=== PATIENT | male | born 1970 | race Caucasian/White ===

== ENCOUNTER 2022-06-22 11:42 | Inpatient (IN) ==
[2022-06-22] MEDS ORDERED: ASPIRIN CHEW 324 MG PO STA ×2 (11:53→11:58)
[2022-06-22] MEDS ORDERED: NITROGLYCERIN SL 0.4 MG/TAB TAB SL STA (11:58)
[2022-06-22] MEDS ORDERED: SODIUM CHLORIDE 0.9% 1000ML 1,000 ML IV ONE (11:58)
[2022-06-22] MEDS ORDERED: NITROGLYCERIN SL 0.4 MG/TAB TAB ONE (11:58)
--- NOTE | 2022-06-22 12:14 | Emergency Department Note ---
History of Present Illness General Chief Complaint: Chest Pain Stated Complaint: CHEST PAIN Time Seen by Provider: 06/22/22 11:53 History of Present Illness Provider Complaint: chest pain Onset (ago): minute(s) 30 Duration: constant Onset: during rest Pain Location: substernal, left chest and right chest Pain Radiation: none Severity: moderate Maximum Pain Intensity: 8 Current Pain Intensity: 8 Quality: + aching and + heaviness Relieved By: + nothing Exacerbated By: + nothing Context: no recent illness, no recent surgery, no recent immobilization, no recent travel, no trauma/injury, no new medications or no history of DVT/PE Associated symptoms: no nausea, no vomiting, no dyspnea, no syncope, no palpitations, no fever or no cough Home Medications Medication Instructions Recorded Confirmed Type olmesartan 20 mg tablet (Benicar) 20 mg PO DAILY 12/31/21 06/22/22 History pantoprazole 40 mg tablet,delayed 40 mg PO DAILY 12/31/21 06/22/22 History release Allergies Allergy/AdvReac Type Severity Reaction Status Date / Time bee venom protein (honey bee) Allergy Severe Hives, Unverified 06/22/22 12:48 Heart racing, trouble breathing lisinopril AdvReac Mild Cough Unverified 06/22/22 12:45 Past Med/Surg History Medical History Esophageal reflux Hypertension No pertinent family history Surgical History No pertinent past surgical history Family History Other Hypertension Social History Smoking Status: Former smoker Hx Alcohol Use: Yes Hx Substance Use: No marital status: Current Living Situation: Spouse current occupational status: employed Feels Safe at Home: Yes Physical Exam Vital Signs Vital Signs - 24 hr 06/22/22 11:45 06/22/22 11:55 06/22/22 11:53 Temperature 36.2 C L Temperature Source Temporal Artery Scan Pulse Rate 62 63 Pulse Rate [Apical] 60 Respiratory Rate 20 16 Respiratory Effort / Characteristics Non-Labored Spontaneous Respiratory Depth Normal Respiratory Pattern Regular Blood Pressure 205/104 H Blood Pressure [Left Arm] 168/96 H Blood Pressure Mean 137 Blood Pressure Mean [Left Arm] 120 Pulse Oximetry 95 97 Oxygen Delivery Method Room Air Sepsis Recent Fever Within 48 Hours No Sepsis New/Unexplained Change in Mental Status No Sepsis Action Taken by Nursing No Action Required 06/22/22 11:53 Temperature Temperature Source Pulse Rate Pulse Rate [Apical] Respiratory Rate Respiratory Effort / Characteristics Respiratory Depth Respiratory Pattern Blood Pressure Blood Pressure [Left Arm] Blood Pressure Mean Blood Pressure Mean [Left Arm] Pulse Oximetry 96 Oxygen Delivery Method Sepsis Recent Fever Within 48 Hours Sepsis New/Unexplained Change in Mental Status Sepsis Action Taken by Nursing Physical Exam GENERAL: He is oriented to person, place, and time. He appears well-developed and well-nourished. He does not appear distressed. HENT: Exam performed. - Head: Normocephalic and atraumatic. - Right Ear: External ear normal. No mastoid tenderness. - Left Ear: External ear normal. No mastoid tenderness. - Mouth/Throat: The oropharynx is clear and moist. No trismus in the jaw. No dental abscesses or uvula swelling. No oropharyngeal exudate or tonsillar abscesses. EYES: Conjunctivae and EOM are normal. Pupils are equal, round, and reactive to light. Right eye exhibits no discharge. Left eye exhibits no discharge. No scleral icterus. NECK: Normal range of motion. Neck supple. No JVD present. No spinous process tenderness present. No carotid bruit present. No rigidity. No tracheal deviation and normal range of motion present. No Brudzinski's sign and no Kernig's sign noted. CV: Normal rate, regular rhythm, normal heart sounds and intact distal pulses. There is no peripheral edema. Palpable radial pulses bue. PULM/CHEST: Effort normal and breath sounds normal. No respiratory distress. No stridor. He has no wheezes. He has no rales. - Chest Wall: He exhibits no tenderness. ABD: The abdomen is soft. Bowel sounds are normal. He has no distension. No mass is present. There is no tenderness. There is no rebound, no guarding, no M urphy's sign and no tenderness at McBurney's point. Rovsig negative. MUSC/SKEL: Normal range of motion. There is no peripheral edema, tenderness or deformity. LYMPH: No cervical adenopathy. NEURO: He is alert and oriented to person, place, and time. He has normal strength. No cranial nerve deficit or sensory deficit. Coordination and gait normal. GCS eye subscore is 4. GCS verbal subscore is 5. GCS motor subscore is 6. Cerebellar tests wnl. SKIN: Skin is warm and dry. He is not diaphoretic. PSYCH: He has a normal mood and affect. Behavior is normal. Judgment and thought content normal. Course Course 1153: The patient was evaluated in room A11. A complete history and physical exam was performed Cardiac monitoring: An order was placed for continuous cardiac monitoring. The monitor shows a rate of 60 with sinus rhythm interpreted by me 1231: Vital signs stable. Patient reports near resolution of his chest pain currently 2 out of 10 status post nitroglycerin sublingually. 1350: Vital signs stable. Patient reports no chest pain at this time. Troponin is mildly elevated 24. D-dimer and chest x-ray are normal. [facility] pain rule out ACS. Administered Medications Discontinued Medications Aspirin (Aspirin Chew 324 Mg) 324 mg PO NOW STA Stop: 06/22/22 11:54 Last Admin: 06/22/22 12:00 Dose: 324 mg Documented By: CASEY Aspirin (Aspirin Chew 324 Mg) 324 mg PO NOW STA Stop: 06/22/22 11:59 Last Admin: 06/22/22 12:12 Dose: Not Given Documented By: CASEY Sodium Chloride (Nss 1000ml) 1,000 mls @ 999 mls/hr IV .Q1H1M ONE Stop: 06/22/22 12:58 Last Admin: 06/22/22 12:01 Dose: 999 mls/hr Documented By: CASEY Nitroglycerin (Nitroglycerin Sl 0.4 Mg/Tab Tab) Confirm Administered Dose 0.4 mg .ROUTE .STK-MED ONE Stop: 06/22/22 11:59 Last Admin: 06/22/22 12:12 Dose: Not Given Documented By: CASEY Nitroglycerin (Nitroglycerin Sl 0.4 Mg/Tab Tab) 0.4 mg SL NOW STA Stop: 06/22/22 11:59 Last Admin: 06/22/22 12:00 Dose: 0.4 mg Documented By: CASEY Medical Decision Making Laboratory Data Attestation: I reviewed the patient's lab results. 06/22/22 12:03 06/22/22 12:03 Labs: Lab Results 06/22/22 06/22/22 06/22/22 Range/Units 12: 12: 12:03 WBC 8.57 (4.8-10.8) K/ul RBC 5.40 (4.70-6.10) M/uL Hgb 16.1 (14.0-18.0) g/dl POC Hgb (14.0-18.0) g/dl Hct 45.6 (42.0-52.0) % POC Hct (42-52) % MCV 84.4 (80.0-100.0) fL MCH 29.8 (25.0-34.0) pg MCHC 35.3 (32.0-36.0) g/dL RDW Std Deviation 36.6 (36.4-46.3) fL RDW Coeff of Kenneth 11.9 (11.5-14.5) % Plt Count 269 (130-400) K/uL MPV 8.7 L (9.4-12.4) fL Immature Gran % (Auto) 0.6 % Neut % (Auto) 51.4 % Lymph % (Auto) 37.5 % [place] % (Auto) 8.1 % Eos % (Auto) 2.0 % Baso % (Auto) 0.4 % Neut # (Auto) 4.42 (1.40-6.50) K/uL Lymph # (Auto) 3.21 (1.2-3.4) K/uL [place] # (Auto) 0.69 H (0.11-0.59) K/uL Eos # (Auto) 0.17 (0-0.50) K/uL Baso # (Auto) 0.03 (0-0.2) K/uL Immature Gran # (Auto) 0.05 (0.01-0.20) K/uL PT Cancelled INR Cancelled APTT Cancelled PTT Ratio Cancelled D-Dimer Cancelled POC Sodium (135-144) mmol/L Sodium 138 (136-145) mmol/L POC Potassium (3.3-5.0) mmol/L Potassium 4.0 (3.5-5.1) mmol/L POC Chloride (101-112) mmol/L Chloride 106 (98-107) mmol/L Carbon Dioxide 23 (21-32) mmol/L POC Total CO2 (24-31) mmol/L Anion Gap 9 (3-11) POC Anion Gap (16-25) mmol/L POC BUN (7-18) mg/dl BUN 19 (6-23) mg/dl Creatinine 1.09 (0.6-1.4) mg/dl POC Creatinine (0.6-1.3) mg/dl Est Cr Clr Drug Dosing 103.4 ml/min Est GFR ( Amer) 90.6 ml/min Est GFR (Non-Af Amer) 78.2 ml/min BUN/Creatinine Ratio 17.4 (10-20) Glucose 112 H (70-99(Fasting)) mg/dl POC Glucose (other) (70-99) mg/dl Calcium 9.8 (8.5-10.1) mg/dl POC Ioniz Calcium Kj (1.12-1.32) mmol/l Troponin I High Sens 24.0 H (0-20) pg/ml Lipase 40 (11-82) U/L SARS-CoV-2, RNA, NAAT (NEGATIVE) 06/22/22 06/22/22 06/22/22 Range/Units 12:09 12:55 12:55 WBC (4.8-10.8) K/ul RBC (4.70-6.10) M/uL Hgb (14.0-18.0) g/dl POC Hgb 15.6 (14.0-18.0) g/dl Hct (42.0-52.0) % POC Hct 46 (42-52) % MCV (80.0-100.0) fL MCH (25.0-34.0) pg MCHC (32.0-36.0) g/dL RDW Std Deviation (36.4-46.3) fL RDW Coeff of Kenneth (11.5-14.5) % Plt Count (130-400) K/uL MPV (9.4-12.4) fL Immature Gran % (Auto) % Neut % (Auto) % Lymph % (Auto) % [place] % (Auto) % Eos % (Auto) % Baso % (Auto) % Neut # (Auto) (1.40-6.50) K/uL Lymph # (Auto) (1.2-3.4) K/uL [place] # (Auto) (0.11-0.59) K/uL Eos # (Auto) (0-0.50) K/uL Baso # (Auto) (0-0.2) K/uL Immature Gran # (Auto) (0.01-0.20) K/uL PT 10.4 INR 1.0 APTT 24.8 PTT Ratio 0.9 D-Dimer < 190 POC Sodium 141 (135-144) mmol/L Sodium (136-145) mmol/L POC Potassium 4.0 (3.3-5.0) mmol/L Potassium (3.5-5.1) mmol/L POC Chloride 106 (101-112) mmol/L Chloride (98-107) mmol/L Carbon Dioxide (21-32) mmol/L POC Total CO2 22 L (24-31) mmol/L Anion Gap (3-11) POC Anion Gap 17.0 (16-25) mmol/L POC BUN 20 H (7-18) mg/dl BUN (6-23) mg/dl Creatinine (0.6-1.4) mg/dl POC Creatinine 1.1 (0.6-1.3) mg/dl Est Cr Clr Drug Dosing ml/min Est GFR ( Amer) ml/min Est GFR (Non-Af Amer) ml/min BUN/Creatinine Ratio (10-20) Glucose (70-99(Fasting)) mg/dl POC Glucose (other) 113 H (70-99) mg/dl Calcium (8.5-10.1) mg/dl POC Ioniz Calcium Kj 1.15 (1.12-1.32) mmol/l Troponin I High Sens (0-20) pg/ml Lipase (11-82) U/L SARS-CoV-2, RNA, NAAT NEGATIVE (NEGATIVE) Imaging Data Chest x-ray: Attestation: I personally reviewed and interpreted this imaging study as follows: My impression: Chest x-ray negative. Airway clear. No pneumothorax. No consolidation. No cardiomegaly or cephalization.. No free air under the diaphragm. No fractures of the skeletal structures. Radiologist's impression: Chest X-Ray 06/22/22 11:53 XR chest 1V portable HISTORY: Chest pain, nonspecific COMPARISON: None. FINDINGS: The lungs are clear. Cardiac silhouette is normal in size. No pleural effusions. No pneumothorax. IMPRESSION: No acute process. ACT 112: Negative or not required by law. Electronically signed by: Isaac Euceda M.D. 06/22/2022 12:21 PM ECG Data Attestation: I personally reviewed and interpreted this ECG as follows: Indication: chest pain Rate (beats per minute): 59 Rhythm: normal sinus Findings: no ST depression, no ST elevation or no prolonged QT MDM Narrative 1153: The patient was evaluated in room A11. A complete history and physical exam was performed Cardiac monitoring: An order was placed for continuous cardiac monitoring. The monitor shows a rate of 60 with sinus rhythm interpreted by me 1231: Vital signs stable. Patient reports near resolution of his chest pain currently 2 out of 10 status post nitroglycerin sublingually. 1350: Vital signs stable. Patient reports no chest pain at this time. Troponin is mildly elevated 24. D-dimer and chest x-ray are normal. Patient be admitted to the [facility] hospitalist team for chest pain rule out ACS. Impression & Plan Chest pain Discharge Plan Visit Data Chief Complaint: Chest Pain Stated Complaint: CHEST PAIN ED Provider: Hitesh Norris Discharge Problem: Chest pain Patient Disposition: Being Evaluated by Hospitalist Forms Stand Alone Forms: My [facility] Prescriptions Prescriptions: No Action olmesartan [Benicar] 20 mg tablet 20 mg PO DAILY pantoprazole 40 mg tablet,delayed release (DR/EC) 40 mg PO DAILY Referrals Referrals: Ramos Conroy DO [Primary Care Provider] -
[2022-06-22 12:22] LABS: iSTAT Creatinine 1.1 mg/dl (0.6-1.3); iSTAT Hemoglobin 15.6 g/dl (14.0-18.0); iSTAT Ionized Calcium 1.15 mmol/l (1.12-1.32)
--- NOTE | 2022-06-22 12:24 | XRay Report ---
XR chest 1V portable HISTORY: Chest pain, nonspecific COMPARISON: None. FINDINGS: The lungs are clear. Cardiac silhouette is normal in size. No pleural effusions. No pneumot horax. IMPRESSION: No acute process. ACT 112: Negative or not required by law. Electronically signed by: Isaac Euceda M.D. 06/22/2022 12:21 PM
[2022-06-22 12:25] LABS: Basophils # (auto) 0.03 K/uL (0-0.2); Basophils % (auto) 0.4 %; Eosinophils # (auto) 0.17 K/uL (0-0.50); Hematocrit (blood only) 45.6 % (42.0-52.0); Hemoglobin 16.1 g/dl (14.0-18.0); Immature Granulocytes # (auto) 0.05 K/uL (0.01-0.20); Immature Granulocytes % (auto) 0.6 %; Lymphocytes # (auto) 3.21 K/uL (1.2-3.4); Lymphocytes % (auto) 37.5 %; Mean Corpuscular Hemoglobin 29.8 pg (25.0-34.0); Mean Corpuscular Hgb Conc 35.3 g/dL (32.0-36.0); Mean Corpuscular Volume 84.4 fL (80.0-100.0); Mean Platelet Volume 8.7 fL (9.4-12.4); Monocytes # (auto) 0.69 K/uL (0.11-0.59); Monocytes % (auto) 8.1 %; Neutrophils # (auto) 4.42 K/uL (1.40-6.50); Neutrophils % (auto) 51.4 %; Platelet Count 269 K/uL (130-400); RDW Coefficient of Variation 11.9 % (11.5-14.5); RDW Standard Deviation 36.6 fL (36.4-46.3); White Blood Count 8.57 K/ul (4.8-10.8)
[2022-06-22 12:35] LABS: BUN Creatinine Ratio 17.4 (10-20); Calcium 9.8 mg/dl (8.5-10.1); Creatinine Clr Calc Pharmacy 103.4 ml/min; Est GFR (African American) 90.6 ml/min; Est GFR (Non-African American) 78.2 ml/min
[2022-06-22 13:35] LABS: D Dimer < 190 ug/L FEU (0-500); Partial Thromboplastin Ratio 0.9; Partial Thromboplastin Time 24.8 Seconds (21.0-31.0); Prothrombin Time 10.4 Seconds (9.0-12.0)
--- NOTE | 2022-06-22 13:58 | History & Physical Report ---
Date of Service June 22, 2022 Assessment & Plan (1) Chest pain, rule out acute myocardial infarction: Plan: Heart score 4 - moderately suspicious history, normal EKG, age 51, 2 risk factors, initial troponin 1-3 times normal limit Aspirin 324 mg p.o. given in ER, continue ASA 81mg PO daily Repeat troponin I pending - if stable will get stress echo tomorrow. If increasing will treat for NSTEMI with heparin, metoprolol, atorvastatin and cardiology consult Lipid profile and HbA1C with AM labs (2) Hypertension: Plan: Continue olmesartan or hospital formulary equivalent Consider nitro paste if troponin increasing and BP still elevated (3) Esophageal stricture: Plan: History of this. Continue pantoprazole 40 mg p.o. daily. Possible cause of chest pain as above however need to rule out cardiac cause initially. Plan VTE prophylaxis - deferred pending repeat troponin Diet -heart healthy Disposition -observation status to PCU Admission and Anticipated Discharge Date Admission Date: June 22, 2022 History of Present Illness Chief Complaint: Chest pain Primary Care Provider: Ramos Conryo DO Hugo Snyder is a 51-year-old male with hypertension who presents to the ER with chest pain. Chest pain started at 11:00 AM. Started while [place] the [place] Didn't get any better or worse on exertion. Never had similar pain previously. Upper chest. Severity 8/10 on arrival in the ER, no current pain after relieved by nitroglycerin. No previous cardiac history. Risk factors for cardiac disease including hypertension, BMI and former smoker (although minimal usage). He takes olmesartan for his hypertension. No associated nausea, diaphoresis or shortness of breath. No palpitations, paroxysmal nocturnal dyspnea, orthopnea, claudication. Former smoker - quit 35 years ago. Couple of cigarettes when going out 1-2 years. Takes pantoprazole for esophageal strictures. No reflux, stomach ulcers or gastritis. No personal or family history of cardiac disease. In the ER initial high-sensitivity troponin I 24.0 pg/mL. D-dimer negative. EKG showed no ischemic changes. He was given nitroglycerin 0.4 mg sublingual which helped relieve his pain. He was referred to medicine for admission ongoing management of chest pain. Allergies Allergy/AdvReac Type Severity Reaction Status Date / Time bee venom protein (honey bee) Allergy Severe Hives, Unverified 06/22/22 12:48 Heart racing, trouble breathing lisinopril AdvReac Mild Cough Unverified 06/22/22 12:45 Home Medications Medication Instructions Recorded Confirmed Type olmesartan 20 mg tablet (Benicar) 20 mg PO DAILY 12/31/21 06/22/22 History pantoprazole 40 mg tablet,delayed 40 mg PO DAILY 12/31/21 06/22/22 History release Past Med/Surg History Medical History Esophageal reflux Esophageal stricture Hypertension No pertinent family history Surgical History No pertinent past surgical history Family History Other Hypertension Social History Smoking Status: Former smoker Second Hand Exposure: No; Hx Alcohol Use: Yes Alcohol type: beer Hx Substance Use: No Communication Ability: 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 Beliefs That Will Affect Care: None marital status: Current Living Situation: Family current occupational status: employed Feels Safe at Home: Yes Assistive Devices: CPAP and Glasses Review of Systems Review of Systems: All systems reviewed & are unremarkable except as noted in HPI & below Physical Exam Constitutional: WD/WN, vitals as above Eyes: + anicteric sclerae; normal pupil size ENMT: external ear and nose normal, oropharynx normal Neck: trachea midline, no thyromegaly Respiratory: normal respiratory effort, lungs clear to auscultation Cardiovascular: RRR, no murmur, no edema Gastrointestinal (Abdomen): normal bowel sounds, soft, nontender, no hepatosplenomegaly Musculoskeletal: no cyanosis or clubbing, extremities motor strength 5/5 Skin: no rashes, warm and dry Neurologic: moves all extremities and awake; not confused Psychiatric: A+Ox3, euthymic affect Results & Data Results & Data ([facility]) Vital Signs (Past 12 Hours) Vital Signs Temp Pulse Pulse Resp BP BP Pulse Ox 06/22/22 11:53 96 06/22/22 11:53 60 16 168/96 H 97 06/22/22 11:55 63 06/22/22 11:45 36.2 C L 62 20 205/104 H 95 O2 Del Method 06/22/22 11:53 06/22/22 11:53 06/22/22 11:55 06/22/22 11:45 Room Air Laboratory Results Abnormal lab results 06/22/22 06/22/22 06/22/22 Range/Units 12:03 12:03 12:09 MPV 8.7 L (9.4-12.4) fL [place] # (Auto) 0.69 H (0.11-0.59) K/uL POC Total CO2 22 L (24-31) mmol/L POC BUN 20 H (7-18) mg/dl Glucose 112 H (70-99(Fasting)) mg/dl POC Glucose (other) 113 H (70-99) mg/dl Troponin I High Sens 24.0 H (0-20) pg/ml Diagnostic Findings XR chest 1V portable HISTORY: Chest pain, nonspecific COMPARISON: None. FINDINGS: The lungs are clear. Cardiac silhouette is normal in size. No pleural effusions. No pneumothorax. IMPRESSION: No acute process. Medications Administered ER medications given: Aspirin 324 mg p.o. Normal saline 1 L bolus Nitroglycerin 0.4 mg sublingual ECG Indication: chest pain Rate (beats per minute): 59 Rhythm: sinus bradycardia Findings: no acute ischemic change Comparison ECG Date: no prior available Code Status & VTE Plan Code Status Full VTE Prophylaxis Plan VTE Prophylaxis will be ordered: Yes PG Care Time/CCT Total # of Minutes Spent Total Time Spent with Patient: Total time spent is greater than 50% in coordination of care (as documented) at patient's floor/unit and/or counseling patient: Coding Level of Care Code 17002 INT INP/OBS CARE 2/MIN Diagnoses Chest pain, rule out acute myocardial infarction R07.9 Hypertension I10 Esophageal stricture K22.2
[2022-06-22] MEDS ORDERED: ONDANSETRON INJ 2 MG/ML 2 ML VIAL IV PRN (14:59)
[2022-06-22] MEDS ORDERED: NITROGLYCERIN SL 0.4 MG/TAB TAB SL PRN (14:59)
[2022-06-22 15:37] LABS: Troponin I High Sensitivity 124.8 pg/ml (0-20)
[2022-06-22] MEDS ORDERED: Heparin IV Adult Wt-Based Low-Dose WITH Bolus Protocol IV STA (15:39)
[2022-06-22] MEDS ORDERED: NITROGLYCERIN 2% OINTMENT 30GM TUBE EXT SCH ×2 (15:45→20:15)
[2022-06-22] MEDS ORDERED: HEPARIN SODIUM/DEXTROSE 25,000 UNITS/500 ML BAG IV SCH (16:00)
[2022-06-22] MEDS ORDERED: HEPARIN SOD (PORCINE) 1000 UNIT/ML IV ONE (16:00)
--- NOTE | 2022-06-22 16:21 | Communication Note ---
Date of Service: June 22, 2022 Troponin increased to 124.8. Patient reviewed and still without chest pain. Discussed importance of telling us if he has chest pain. A/P NSTEMI - Total duration of pain 2-2.5 hours. No pain since nitroglycerin given in ER. TTE. Start heparin low dose IV with bolus, atorvastatin 80mg PO HS, Metoprolol tartrate 25mg PO BID, ASA 81mg PO daily. NPO after midnight. Consult cardiology - discussed care with Dr De La O. HTN - BP still 164/92 in setting of NSTEMI, will start nitro paste 1 inch
[2022-06-22 16:45] LABS: Magnesium 2.1 mg/dl (1.7-2.4)
--- NOTE | 2022-06-22 19:06 | Electrocardiogram Report ---
Test Reason : Blood Pressure : / mmHG Vent. Rate : 059 BPM Atrial Rate : 059 BPM P-R Int : 162 ms QRS Dur : 106 ms QT Int : 416 ms P-R-T Axes : 035 056 022 degrees QTc Int : 411 ms Sinus bradycardia Otherwise normal ECG No previous ECGs available Confirmed by Arturo De La O ([id number]) on 06/22/2022 7:05:33 PM Referred By: REFERRED SELF Confirmed By:Arturo De La O
[2022-06-22] MEDS: METOPROLOL TARTRATE 25 MG TAB PO SCH (20:11)
[2022-06-22] MEDS: ATORVASTATIN 40 MG TAB PO SCH (20:12)
[2022-06-22] MEDS ORDERED: ATORVASTATIN 40 MG TAB PO SCH (21:00)
[2022-06-22] MEDS ORDERED: ACETAMINOPHEN 325 MG TAB PO PRN (21:22)
[2022-06-22] MEDS ORDERED: CLOPIDOGREL BISULFATE 300 MG TAB PO STA (21:36)
[2022-06-22 21:55] LABS: Partial Thromboplastin Ratio 1.2; Partial Thromboplastin Time 32.5 Seconds (21.0-31.0)
[2022-06-22] MEDS ORDERED: HEPARIN IV BOLUS 4,000 UNITS in SYRINGE 0 ML IV ONE (22:15)
[2022-06-22] MEDS: NITROGLYCERIN 2% OINTMENT 30GM TUBE EXT SCH (22:26)
[2022-06-23] MEDS: NITROGLYCERIN 2% OINTMENT 30GM TUBE EXT SCH ×2 (04:48→10:24)
[2022-06-23 05:12] LABS: Basophils # (auto) 0.03 K/uL (0-0.2); Basophils % (auto) 0.3 %; Eosinophils # (auto) 0.16 K/uL (0-0.50); Eosinophils % (auto) 1.8 %; Hematocrit (blood only) 39.6 % (42.0-52.0); Hemoglobin 14.1 g/dl (14.0-18.0); Immature Granulocytes # (auto) 0.05 K/uL (0.01-0.20); Immature Granulocytes % (auto) 0.6 %; Lymphocytes # (auto) 2.55 K/uL (1.2-3.4); Lymphocytes % (auto) 28.7 %; Mean Corpuscular Hemoglobin 30.1 pg (25.0-34.0); Mean Corpuscular Hgb Conc 35.6 g/dL (32.0-36.0); Mean Corpuscular Volume 84.4 fL (80.0-100.0); Monocytes # (auto) 0.63 K/uL (0.11-0.59); Monocytes % (auto) 7.1 %; Neutrophils # (auto) 5.48 K/uL (1.40-6.50); Neutrophils % (auto) 61.5 %; Platelet Count 209 K/uL (130-400); RDW Coefficient of Variation 12.1 % (11.5-14.5); RDW Standard Deviation 36.4 fL (36.4-46.3); Red Blood Count 4.69 M/uL (4.70-6.10)
[2022-06-23 05:27] LABS: BUN Creatinine Ratio 17.5 (10-20); Chol HDL Ratio 3.6 (0-5); Creatinine Clr Calc Pharmacy 116.2 ml/min; Est GFR (African American) 104.3 ml/min; Potassium 4.1 mmol/L (3.5-5.1)
[2022-06-23 05:35] LABS: Troponin I High Sensitivity 664.8 pg/ml (0-20)
[2022-06-23 06:01] LABS: Partial Thromboplastin Ratio 1.7
[2022-06-23 06:15] LABS: Partial Thromboplastin Time 45.8 Seconds (21.0-31.0)
[2022-06-23 07:30] LABS: Estimated Average Glucose 103 mg/dl; Hemoglobin A1C 5.2 % (4.5-5.6)
[2022-06-23] MEDS: CLOPIDOGREL BISULFATE 75 MG TAB PO SCH (08:20)
[2022-06-23] MEDS: ASPIRIN 81 MG ECTAB PO SCH (08:20)
[2022-06-23] MEDS: PANTOprazole 40 MG TAB PO SCH (08:20)
[2022-06-23] MEDS: LOSARTAN POTASSIUM 50 MG TAB PO SCH (08:21)
--- NOTE | 2022-06-23 08:29 | XCELERA ---
[id number]
--- NOTE | 2022-06-23 09:23 | Cardiology Consultation ---
Date of Consultation June 23, 2022 Assessment & Plan (1) ACS (acute coronary syndrome): Presentation and initial testing consistent with acute coronary syndrome and recommend further risk stratification with cardiac catheterization. Discussed procedure including risk, benefits with patient and his . They are willing to proceed. Plan to perform now via right radial artery. Further recommendations pending findings of coronary angiography. History of Present Illness Attending Physician: Nehal Mckeon MD History of Present Illness Mr. Snyder is a very pleasant 51-year-old man seen today due to suspected ACS. Cardiac risk factors include hypertension, remote tobacco use, elevated BMI. Other medical issues include esophageal stricture post multiple dilations, TONIA. Was feeling well until yesterday morning when while driving to go shopping developed chest tightness across his chest radiating to both armpits. No associated nausea, diaphoresis. Symptoms persisted for approximately an hour before he presented to ED. Symptoms eventually resolved with nitroglycerin, aspirin. Initial ECGs showed sinus bradycardia without significant ST abnormalities. Hypertensive up to the 170s, and placed on Nitropatch. Initial HS TropI 24, subsequently trended up and peaked at 1200. Started on heparin infusion overnight. No additional chest pain. This morning echo showed preserved LV function with borderline inferior/inferoseptal hypokinesis. Family history: No premature CAD or SCD. Social history: . 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 Smoked briefly, quit more than 25 years ago. Drinks several beers multiple nights a week. Allergies Allergy/AdvReac Type Severity Reaction Status Date / Time bee venom protein (honey bee) Allergy Severe Hives, Unverified 06/22/22 12:48 Heart racing, trouble breathing lisinopril AdvReac Mild Cough Unverified 06/22/22 12:45 Home Medications Medication Instructions Recorded Confirmed Type olmesartan 20 mg tablet (Benicar) 20 mg PO DAILY 12/31/21 06/22/22 History pantoprazole 40 mg tablet,delayed 40 mg PO DAILY 12/31/21 06/22/22 History release Patient History Medical History Esophageal reflux Esophageal stricture Hypertension No pertinent family history Surgical History No pertinent past surgical history Family History Other Hypertension Social History Smoking Status: Former smoker Second Hand Exposure: No; Hx Alcohol Use: Yes Alcohol type: beer Hx Substance Use: No Communication Ability: Effective 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 Vascular: 2+ radial, DP pulses. No bruits Abdomen: Soft, nontender Extremities: Well perfused, no peripheral edema Neuro: Nonfocal Psych: Alert orient x3, normal affect and mood Results & Data ([facility]) Vital Signs (Past 12 Hours) Vital Signs Temp Pulse Pulse Resp BP Pulse Ox O2 Del Method 06/23/22 07:12 98.1 F 54 L 19 127/80 95 Room Air 06/23/22 04:30 97.7 F 54 L 18 123/78 95 Room Air 06/22/22 22:00 51 L 06/22/22 23:00 98.1 F 06/22/22 22:49 56 L 19 140/82 97 Room Air 06/22/22 22:00 53 L 138/83 06/22/22 21:30 55 L 143/85 H 06/22/22 22:25 54 L 143/83 H PG Care Time/CCT Total # of Minutes Spent Total Time Spent with Patient: Total time spent is greater than 50% in coordination of care (as documented) at patient's floor/unit and/or counseling patient: Coding Level of Care Code INP/OBS CONSULT LVL 4, 60 MIN Diagnoses ACS (acute coronary syndrome) I24.9
--- NOTE | 2022-06-23 09:28 | Pre Anesthesia Assessment ---
Date of Service June 23, 2022 Pre Sedation Assessment Vital Signs Temp Pulse Pulse Resp BP BP Pulse Ox 06/23/22 07:12 98.1 F 54 L 19 127/80 95 06/23/22 04:30 97.7 F 54 L 18 123/78 95 06/22/22 22:00 51 L 06/22/22 23:00 98.1 F 06/22/22 22:49 56 L 19 140/82 97 06/22/22 22:00 53 L 138/83 06/22/22 21:30 55 L 143/85 H 06/22/22 22:25 54 L 143/83 H 06/22/22 19:07 98.1 F 64 18 177/89 H 96 06/22/22 14:59 63 06/22/22 15:08 06/22/22 15:00 53 L 14 164/92 H 96 06/22/22 11:53 96 06/22/22 11:53 60 16 168/96 H 97 06/22/22 11:55 63 06/22/22 11:45 97.2 F L 62 20 205/104 H 95 O2 Del Method 06/23/22 07:12 Room Air 06/23/22 04:30 Room Air 06/22/22 22:00 06/22/22 23:00 06/22/22 22:49 Room Air 06/22/22 22:00 06/22/22 21:30 06/22/22 22:25 06/22/22 19:07 Room Air 06/22/22 14:59 06/22/22 15:08 Room Air 06/22/22 15:00 Room Air 06/22/22 11:53 06/22/22 11:53 06/22/22 11:55 06/22/22 11:45 Room Air Cardiovascular RRR, no murmur, no edema Respiratory normal respiratory effort, lungs clear to auscultation Pre-Sedation Airway Assessment Smoking Status: Former smoker Hx Sleep Apnea: No Hx Difficult Intubation: No Short, Thick Neck: No Thyromental Distance: > or= 3.5 Finger Breadths Oral Cavity: + WNL Mallampati Class: III ASA: ASA3 NPO Status Date of Last Intake of Fluids: 06/23/22 Time of Last Intake of Fluids: 08:00 Last Oral Intake of Fluids Comment: sip with meds Date of Last Intake of Solid Food: 06/22/22 Procedure Planning Contraindications for Sedation: none Current Medications Reviewed: Yes Notes The planned sedation has been discussed with the patient. Informed Consent was obtained. I have identified the patient, determined the appropriateness of sedation and have assessed the patient immediately prior to the procedure. All medicine(s) and interventions are by my order.
[2022-06-23] MEDS: niCARdipine HCL INJ 2.5 MG/ML 10 ML AMP ONE ×2 (10:00→11:31)
[2022-06-23] MEDS: fentaNYL citrate 100 MCG/2 ML VIAL ONE ×2 (10:00→11:31)
[2022-06-23] MEDS: NITROGLYCERIN/D5W 100MCG/ML 20ML SYR ONE ×2 (10:00→11:30)
[2022-06-23] MEDS: MIDAZOLAM HCL 1 MG/ML 2ML VIAL ONE ×2 (10:00→11:29)
[2022-06-23] MEDS: HEPARIN (PORCINE) 1000 UNIT/ML 10 ML (CATH LAB USE ONLY) ONE ×2 (10:00→11:29)
[2022-06-23] MEDS: CLOPIDOGREL BISULFATE 300 MG TAB ONE ×2 (10:30→11:30)
--- NOTE | 2022-06-23 10:34 | Post Anesthesia Assessment ---
Date of Service June 23, 2022 Post Sedation Assessment Vital Signs Temp Pulse Pulse Resp BP BP Pulse Ox 06/23/22 07:12 98.1 F 54 L 19 127/80 95 06/23/22 04:30 97.7 F 54 L 18 123/78 95 06/22/22 22:00 51 L 06/22/22 23:00 98.1 F 06/22/22 22:49 56 L 19 140/82 97 06/22/22 22:00 53 L 138/83 06/22/22 21:30 55 L 143/85 H 06/22/22 22:25 54 L 143/83 H 06/22/22 19:07 98.1 F 64 18 177/89 H 96 06/22/22 14:59 63 06/22/22 15:08 06/22/22 15:00 53 L 14 164/92 H 96 06/22/22 11:53 96 06/22/22 11:53 60 16 168/96 H 97 06/22/22 11:55 63 06/22/22 11:45 97.2 F L 62 20 205/104 H 95 O2 Del Method 06/23/22 07:12 Room Air 06/23/22 04:30 Room Air 06/22/22 22:00 06/22/22 23:00 06/22/22 22:49 Room Air 06/22/22 22:00 06/22/22 21:30 06/22/22 22:25 06/22/22 19:07 Room Air 06/22/22 14:59 06/22/22 15:08 Room Air 06/22/22 15:00 Room Air 06/22/22 11:53 06/22/22 11:53 06/22/22 11:55 06/22/22 11:45 Room Air Recovery Score Activity: Moves 4 extremities Respiration: Deep Breath/Cough Circulation: +/-20% PreAnes Value Consciousness: Fully Awake Oxygen Saturation: O2 needed for >90% Discharge Sedation Level of Care: Fast Track Phase II Post Sedation Plan On clinical assessment, the patient appears to have tolerated the sedation without complications. Patient is recovering as anticipated. Patient will continue to be monitored by nursing and may be discharged when sedation discharge criteria are met per below protocol. Upon Completions of procedure up to 15 minutes continue every 5 minute vital signs and the P.A.R. score; then discharge to a Phase I or Fast Track to Phase II per the following guidelines: * Discharge Patient to appropriate Phase II area if PAR is 8 or greater or return to pre- procedure baseline. The post - procedure orders will be as directed. * If PAR score is less than 8 or not return to pre-procedure baseline then patient will follow Phase I monitoring till PAR is reached for Phase II. The Phase I may be done in procedure room or may call to secure a Phase I area. * If naloxone or flumazenil are used for reversal, hold in Phase I for continued monitoring from when last reversal dose was given for a minimum of 60 minutes or longer pending the nurse and/or physician discretion of patient condition before discharge to Phase II. Please call the Sedation Physician to re-evaluate and complete post-note for discharge to Phase II area. Do NOT discharge from procedure sedation or Phase 1 until post- sedation evaluation note is complete by procedure /sedation MD Sedation Discharge Instructions to be given to the patient at discharge to home.
--- NOTE | 2022-06-23 10:51 | Cardiac Catheterization ---
[facility] Data: Mortician Helper Cardiac Status Clinical evaluation leading to the procedure CAD Presenation: Non STEMI Anginal Classification: CCS IV Diagnostic Physicians Name: Patrick Alvarez MD Closure Device Recommendations: PCI without planned CABG Cardiac Cath Procedure Full Procedure Date June 23, 2022 Pre-Procedure Diagnosis Pre-Procedure Diagnosis: Non STEMI AUC Score AUC Score: 8 Post-Procedure Diagnosis Post-Procedure Diagnosis: Severe CAD and Successful PCI Procedure(s) Performed Procedure(s) Performed: Coronary Angiography, Left Heart Cath and Drug Eluting Stent Senior Branch Manager Patrick Alvarez MD Fruit Sorter(s) Johnathon Estimated Blood Loss Estimated Blood Loss: None Medication(s) Medication(s): Clopidogrel, Fentanyl, Heparin, Lidocaine 1%, Nicardipine, Nitroglycerin and Versed Summary of Findings Indication: NSTEMI Access: 6 Fr right radial artery Catheters: [place], EBU 3.5 guide Findings: LM -large caliber, long, no significant disease LAD -large caliber, tortuous, 20 to 30% mid segment disease distal vessel without significant disease and extends to apex. Medium D1 without disease. Medium D2 with 95% proximal acute stenosis and MARY I-II flow distally. Circumflex -large caliber, 20 to 30% mid segment disease. Medium OM 2 without significant disease RCA -dominant, large caliber, 20% ostial, proximal segment ectatic, mid segment with mild luminal irregularities. Medium RPDA without significant disease. LVEDP -15 -- PCI -- Antithrombotic therapy: Heparin, clopidogrel Procedure: Left main cannulated with EBU 3.5 guide Pre-procedure flow MARY 1-2 [place] wire placed into distal LAD Press Technician 50 wire passed across D2 lesion into distal vessel Proximal D2 lesion predilated with 2.0 compliant balloon Dilated lesion stented with 2.25 x 22 mm Rough And Ready drug-eluting stent Stent post-dilated with stent balloon IC vasodilators administered for spasm Post procedure MARY 3 flow, stent well expanded with minimal residual stenosis and no apparent cardiac complications. Arterial Closure: TR band Summary: 1. Acute 95% stenosis proximal second Diagonal artery. 2. Mild nonculprit coronary artery disease 20 to 30% mid LAD 20 to 30% mid circumflex 20% ostial RCA 3. Normal intracardiac filling pressure 4. Successful PCI of proximal second diagonal with single drug-eluting stent (2.25 x 22 mm Rough And Ready). Recommendations: To PCU for continued monitoring Reloaded with clopidogrel 300 mg in Mortician Helper Continue dual-antiplatelet therapy for at least 1 year Continue statin, and ASCVD risk factor modification Consult cardiac Rehab Hemodynamics Rest Ao:: 113/75 (94) Final Ao: 119/78 (97) LV: 116/15 Recommendations Recommendations: PCI without planned CABG Specimens Specimens: None Radiation Exposure (mGy) 2842 Contrast (mls) 150 Anesthesia Moderate 4745-1147 Procedural Complication(s) None Disposition PCU I attest to the content of the Intraoperative Record and any orders documented therein. Any exceptions are noted below. [facility] Card Cath Procedure Codes Cardiac Catheterization Procedure 1: Cardiovascular Cath Procedures: 64434 Coronaries and LHC (+/-LV) Moderate Sedation Procedure 1: Sedation/Anesthesia: 43106 Mod Sedation by the same physician;Init15 Min Child Age 5 & Up Procedure 2: Sedation/Anesthesia: 33169 Mod Sedation by the same physician; Ea [id number] Minutes Stenting Procedure 1: Cardiovascular Stent Procedures: 98884 Perc transcatheter placement of intracoronary stent(s), with ang PG Care Time/CCT Total # of Minutes Spent Total Time Spent with Patient: Total time spent is greater than 50% in coordination of care (as documented) at patient's floor/unit and/or counseling patient:
[2022-06-23] MEDS ORDERED: SODIUM CHLORIDE 0.9% 1000ML 1,000 ML IV SCH (11:00)
[2022-06-23] MEDS ORDERED: LIDOCAINE 1% LOCAL 20 ML VIAL ONE (11:35)
--- NOTE | 2022-06-23 11:54 | Hospitalist Progress Note ---
Date of Service June 23, 2022 Assessment & Plan (1) Chest pain, rule out acute myocardial infarction: Plan: Patient admitted on account of chest pain EKG and trops were wnl Aspirin 324 mg p.o. given in ER, continue ASA 81mg PO daily Started on heparin by weight Evaluated by cardiology, he is now s/p JEFFREY in the diagonal artery Continue ASA and Plavix Possible d/c tomorrow (2) Hypertension: Plan: BP is under good control continue home meds (3) Esophageal stricture: Plan: History of this. Continue pantoprazole 40 mg p.o. daily. Possible cause of chest pain as above however need to rule out cardiac cause initially. Plan possible d/c tomorrow Admission and Anticipated Discharge Date Admission Date: June 22, 2022 Subjective patient seen and examined, no new complaints Review of Systems Review of Systems: All systems reviewed are negative, apart from the ones contained in the history. Physical Exam Physical Exam: The patient is awake, alert and oriented 3, well developed and well nourished, normocephalic and atraumatic, lying in bed and in no acute distress. HEENT--PERRL, EOMI, mucous membranes and oropharynx mildly dry Neck--supple. No JVD. No bruits. Thyroid normal, trachea midline, no adenopathy. Heart--normal S1 and S2. No murmurs, rubs or gallops. Lungs--clear bilaterally, no respiratory distress, no accessory muscle use. Abdomen--normal bowel sounds and soft. Mild epigastric and left sided abdominal pain Extremities--no cyanosis or clubbing. No edema. Dermatologic--normal skin turgor, normal color, no abnormal lymph nodes, no ra sh. Neurologic--cranial nerves II through XII grossly intact. Rheumatologic--normal range of motion. Psychiatric--normal affect. Results & Data Results & Data ([facility]) Vital Signs (Past 12 Hours) Vital Signs Temp Pulse Resp BP Pulse Ox O2 Del Method 06/23/22 11:37 49 L 16 128/84 96 Room Air 06/23/22 11:27 49 L 16 142/85 H 95 Room Air 06/23/22 10:43 98.2 F 52 L 16 136/80 96 Room Air 06/23/22 10:40 56 L 16 122/82 95 Room Air 06/23/22 10:25 55 L 16 129/75 95 Room Air 06/23/22 07:12 98.1 F 54 L 19 127/80 95 Room Air 06/23/22 04:30 97.7 F 54 L 18 123/78 95 Room Air PG Care Time/CCT Total # of Minutes Spent Total Time Spent with Patient: Total time spent is greater than 50% in coordination of care (as documented) at patient's floor/unit and/or counseling patient: Coding Level of Care Code 04222 SUB INP/OBS CARE 2/35MIN Diagnoses Chest pain, rule out acute myocardial infarction R07.9 Hypertension I10 Esophageal stricture K22.2 Time Spent (min) 35
--- NOTE | 2022-06-23 12:36 | Electrocardiogram Report ---
Test Reason : Blood Pressure : / mmHG Vent. Rate : 051 BPM Atrial Rate : 051 BPM P-R Int : 202 ms QRS Dur : 106 ms QT Int : 444 ms P-R-T Axes : 023 010 026 degrees QTc Int : 409 ms Sinus bradycardia Otherwise normal ECG When compared with ECG of 22-JUN-2022 11:49, No significant change was found Confirmed by Constantine Morillo ([id number]) on 06/23/2022 12:36:37 PM Referred By: REFERRED SELF Confirmed By:Constantine Morillo
--- NOTE | 2022-06-23 12:39 | Electrocardiogram Report ---
Test Reason : Blood Pressure : / mmHG Vent. Rate : 049 BPM Atrial Rate : 049 BPM P-R Int : 206 ms QRS Dur : 102 ms QT Int : 452 ms P-R-T Axes : 018 018 038 degrees QTc Int : 408 ms Sinus bradycardia Otherwise normal ECG When compared with ECG of 22-JUN-2022 22:54, (unconfirmed) No significant change was found Confirmed by Constantine Morillo ([id number]) on 06/23/2022 12:38:42 PM Referred By: REFERRED SELF Confirmed By:Constantine Morillo
[2022-06-23 13:34] LABS: Partial Thromboplastin Ratio 3.5
[2022-06-23 13:37] LABS: Partial Thromboplastin Time 96.8 Seconds (21.0-31.0)
[2022-06-23] MEDS: METOPROLOL TARTRATE 25 MG TAB PO SCH ×2 (14:37→21:27)
[2022-06-23] MEDS: ATORVASTATIN 40 MG TAB PO SCH (21:28)
[2022-06-24 07:31] LABS: BUN Creatinine Ratio 14.2 (10-20); Calcium 9.4 mg/dl (8.5-10.1); Creatinine Clr Calc Pharmacy 106.4 ml/min; Est GFR (African American) 93.7 ml/min; Est GFR (Non-African American) 80.9 ml/min; Potassium 4.3 mmol/L (3.5-5.1)
[2022-06-24] MEDS: METOPROLOL TARTRATE 25 MG TAB PO SCH (08:24)
[2022-06-24] MEDS: PANTOprazole 40 MG TAB PO SCH (08:24)
[2022-06-24] MEDS: CLOPIDOGREL BISULFATE 75 MG TAB PO SCH (08:24)
[2022-06-24] MEDS: ASPIRIN 81 MG ECTAB PO SCH (08:25)
[2022-06-24] MEDS: LOSARTAN POTASSIUM 50 MG TAB PO SCH (08:25)
--- NOTE | 2022-06-24 09:21 | Cardiology Progress Note ---
Date of Service June 24, 2022 Assessment & Plan (1) ACS (acute coronary syndrome): Plan: 2. CAD -- post PCI with JEFFREY to diagonal 3. Hypertension 4. Esophageal strictures Stable from a cardiac standpoint. No chest pain. Trop downtrending. Electrically stable overnight. No apparent access site complications. From a cardiac standpoint OK with discharge today. -- Continue DAPT with ASA/Clopidogrel for 1 year. -- Continue ARB. Home on new metoprolol 25mg BID -- Continue Atorvastatin 80mg daily -- Continue prior PPI. Follow-up with cardiology in 1 week -- will arrange. Admission and Anticipated Discharge Date Admission Date: June 22, 2022 Subjective Feeling well this morning. No chest pain overnight. No other new complaints. Review of Systems Review of Systems: All systems reviewed & are unremarkable except as noted in HPI & below Physical Exam Physical Exam: General: Comfortable HEENT: Sclerae anicteric Lungs: Clear to auscultation bilaterally, no crackles or wheezes Cardiac: Regular rate and rhythm, no murmurs. Vascular: 2+ RT radial. No ecchymosis or hematoma. Distal sensation intact Abdomen: Soft, nontender Extremities: Well perfused, no peripheral edema Neuro: Nonfocal Psych: Alert orient x3, normal affect and mood Results & Data ([facility]) Vital Signs (Past 12 Hours) Vital Signs Temp Pulse Pulse Resp BP Pulse Ox O2 Del Method 06/24/22 08:36 49 L 06/24/22 08:23 67 153/91 H 06/24/22 07:17 98.2 F 53 L 18 136/90 Room Air 06/24/22 03:52 97.9 F 55 L 19 115/77 93 Room Air 06/23/22 22:02 57 L 06/23/22 23:21 97.9 F 61 19 137/77 97 Room Air 06/23/22 22:24 61 PG Care Time/CCT Total # of Minutes Spent Total Time Spent with Patient: Total time spent is greater than 50% in coordination of care (as documented) at patient's floor/unit and/or counseling patient: Coding Level of Care Code 57605 SUB INP/OBS CARE 2/35MIN Diagnoses ACS (acute coronary syndrome) I24.9
--- NOTE | 2022-06-24 10:16 | Electrocardiogram Report ---
Test Reason : Blood Pressure : / mmHG Vent. Rate : 052 BPM Atrial Rate : 052 BPM P-R Int : 202 ms QRS Dur : 106 ms QT Int : 430 ms P-R-T Axes : 016 012 047 degrees QTc Int : 399 ms Sinus bradycardia Otherwise normal ECG When compared with ECG of 23-JUN-2022 05:03, No significant change was found Confirmed by Constantine Morillo ([id number]) on 06/24/2022 10:16:17 AM Referred By: REFERRED SELF Confirmed By:Constantine Morillo
--- NOTE | 2022-06-24 11:16 | Discharge Summary ---
Date of Service June 24, 2022 Admission HPI Per Admitting Provider Hugo Snyder is a 51-year-old male with hypertension who presents to the ER with chest pain. Chest pain started at 11:00 AM. Started while [place] the [place] the [place] Didn't get any better or worse on exertion. Never had similar pain previously. Upper chest. Severity 8/10 on arrival in the ER, no current pain after relieved by nitroglycerin. No previous cardiac history. Risk factors for cardiac disease including hypertension, BMI and former smoker (although minimal usage). He takes olmesartan for his hypertension. No associated nausea, diaphoresis or shortness of breath. No palpitations, paroxysmal nocturnal dyspnea, orthopnea, claudication. Former smoker - quit 35 years ago. Couple of cigarettes when going out 1-2 years. Takes pantoprazole for esophageal strictures. No reflux, stomach ulcers or gastritis. No personal or family history of cardiac disease. In the ER initial high-sensitivity troponin I 24.0 pg/mL. D-dimer negative. EKG showed no ischemic changes. He was given nitroglycerin 0.4 mg sublingual which helped relieve his pain. He was referred to medicine for admission ongoing management of chest pain. Principal Diagnosis CO Discharge Exam The patient is awake, alert and oriented 3, well developed and well nourished, normocephalic and atraumatic, lying in bed and in no acute distress. HEENT--PERRL, EOMI, mucous membranes and oropharynx mildly dry Neck--supple. No JVD. No bruits. Thyroid normal, trachea midline, no adenopathy. Heart--normal S1 and S2. No murmurs, rubs or gallops. Lungs--clear bilaterally, no respiratory distress, no accessory muscle use. Abdomen--normal bowel sounds and soft. Mild epigastric and left sided abdominal pain Extremities--no cyanosis or clubbing. No edema. Dermatologic--normal skin turgor, normal color, no abnormal lymph nodes, no rash. Neurologic--cranial nerves II through XII grossly intact. Rheumatologic--normal range of motion. Psychiatric--normal affect. Discharge Data Allergies Allergy/AdvReac Type Severity Reaction Status Date / Time bee venom protein (honey bee) Allergy Severe Hives, Unverified 06/22/22 12:48 Heart racing, trouble breathing lisinopril AdvReac Mild Cough Unverified 06/22/22 12:45 Consultations 06/22/22 13:52 ED Decision to Admit Stat 06/22/22 16:14 Consult Cardiology Routine 06/23/22 10:54 Consult Cardiac Rehabilitation Routine Procedures Performed Operation Date: 06/23/22 09:30 Actual Procedures p Cath, Left with Cors and Vent - Edin Alvarez MD s Cineradiography w/Routine Exam - Edin Alvarez MD s Drug Eluting Stent SGl Vessel - Edin Alvarez MD Ordered Studies 06/23/22 09:06 CL Cath Imgs for PACS use only Routine Hospital Course (1) Chest pain, rule out acute myocardial infarction: Patient admitted on account of chest pain EKG and trops were wnl Aspirin 324 mg p.o. given in ER, continue ASA 81mg PO daily Started on heparin by weight Evaluated by cardiology, he is now s/p JEFFREY in the diagonal artery Continue ASA and Plavix d/c home, folow up with cardiology in 1 week (2) Hypertension: BP is under good control continue home meds (3) Esophageal stricture: History of this. Continue pantoprazole 40 mg p.o. daily. Possible cause of chest pain as above however need to rule out cardiac cause initially. Plan d/c home Total Time Total Time Spent Total Time Spent (In Minutes): 35 Discharge Plan Discharge Items Patient Disposition: Home - Self-Care Reason For Visit: CHEST PAIN R/O CO Discharge Diagnosis: CO Activity: Resume your previous activity Lifting: Gradually increase as tolerated Non-emergency contact: Primary Care Provider and Tool Radial Drill Press Set Up Operator Call non-emergency contact if: you have any medication questions and your symptoms worsen Follow-up/Referrals: Edin Alvarez MD [Physician] - 07/01/22 11:00 am (with Dr. De La O) Ramos Conroy DO [Primary Care Provider] - Diet: Regular Addtl Attending Provider Instructions: Please make appointment to follow up with your winter intern in 1 week Pending Studies at Discharge: No Stand-Alone Forms: My [employer], Smoking Cessation Medications and DC Order Prescriptions: New atorvastatin 40 mg Tablet 80 mg PO QPM 30 Days Qty: 60 0RF clopidogrel 75 mg Tablet 75 mg PO QAM 30 Days Qty: 30 0RF metoprolol tartrate 25 mg Tablet 25 mg PO BID 30 Days Qty: 60 0RF Continued olmesartan [Benicar] 20 mg tablet 20 mg PO DAILY pantoprazole 40 mg tablet,delayed release (DR/EC) 40 mg PO DAILY Discharge Orders: Discharge Order (Routine); Ordered 06/24/22 Ordered By: Nehal Mckeon Admission Data Admit Date/Time: 06/22/22 16:10 Attending Provider: Nehal Mckeon Admit Provider: Santana Garcia Primary Care Provider: Ramos Conroy Other Providers: Santana Garcia ; Arturo De La O Other Interventions: Discharge Summary Assessment (RN) Last Done: 06/24/22 10:32 Coding Level of Care Code HOSP INP/OBS DISCH >30 MIN Diagnoses Chest pain, rule out acute myocardial infarction R07.9 Hypertension I10 Esophageal stricture K22.2 Time Spent (min) 35
== END 2022-06-24 11:05 | disposition home or self-care (01) | DRG 247 ==
LOC: ED 11:42 → 2E 11:42 → SUATTDRO 16:10

== ENCOUNTER 2024-11-28 01:02 | Inpatient (IN) ==
[2024-11-28 01:32] LABS: Hematocrit (blood only) 40.1 % (42.0-52.0); Hemoglobin 13.7 g/dl (14.0-18.0); Immature Granulocytes # (auto) 0.04 K/uL (0.01-0.20); Immature Granulocytes % (auto) 0.5 %; Mean Corpuscular Hemoglobin 30.0 pg (25.0-34.0); Mean Corpuscular Volume 87.9 fL (80.0-100.0); Platelet Count 242 K/uL (130-400); RDW Standard Deviation 39.0 fL (36.4-46.3); Red Blood Count 4.56 M/uL (4.70-6.10); White Blood Count 8.46 K/ul (4.8-10.8)
[2024-11-28] MEDS: ONDANSETRON INJ 2 MG/ML 2 ML VIAL IV STA (01:33)
--- NOTE | 2024-11-28 01:33 | Emergency Department Note ---
History of Present Illness General Chief complaint: Back Injury/Pain Stated complaint: BACK PAIN Time Seen by Provider: 11/28/24 01:10 History of Present Illness Maximum Pain Intensity: 10 This is a 54-year-old male presenting to the emergency department for evaluation of continued back pain. Patient was seen and evaluated in this department roughly 12 hours ago for his symptoms. The patient evidently was in [place] for a conference and had increased ambulation at that time. He developed some mild low back pain that he initially thought may have been a kidney stone. He was evaluated at an ER there, where CT scan did not show any kidney stone, but was concerning for low back/lumbar etiology of his symptoms. Patient ultimately returned home and came to this facility where MRI shows advanced findings in L5/S1. Patient felt better after pain medication here in the ER and was given the option of discharge home versus admission to the hospital. Patient elected to go home, but only made it a few hours before pain returned. He tried taking [id number] analgesics and Oxy IR, without any significant relief. He rates his discomfort a 10/10. Pain worsens with certain movement. Home Medications Medication Instructions Recorded Confirmed Type pantoprazole 40 mg tablet,delayed 40 mg PO DAILY 12/31/21 11/28/24 History release atorvastatin 80 mg tablet 80 mg PO QPM #90 tabs 09/18/23 11/28/24 Rx olmesartan 40 mg tablet 40 mg PO DAILY #90 tabs 09/28/24 11/28/24 Rx clopidogrel 75 mg tablet 75 mg PO QAM #21 tabs 10/04/24 11/28/24 Rx hydrochlorothiazide 25 mg tablet 25 mg PO DAILY #90 tabs 10/10/24 11/28/24 Rx cyclobenzaprine 10 mg tablet 10 mg PO QID PRN MUSCLE SPASMS 11/27/24 11/28/24 History cyclobenzaprine 10 mg tablet 10 mg PO TID PRN muscle spasm #15 11/27/24 11/28/24 Rx tabs epinephrine 0.3 mg/0.3 mL 0.3 mg IM DIRECTED PRN Allergic 11/27/24 11/28/24 History injection, auto-injector Reaction multivitamin 1 tab PO DAILY 11/27/24 11/28/24 History oxycodone 5 mg tablet 5 mg PO Q6H PRN pain #15 tabs 11/27/24 11/28/24 Rx prednisone 10 mg tablet 10 mg PO DIRECTED #20 tabs 11/27/24 11/28/24 Rx Allergies Allergy/AdvReac Type Severity Reaction Status Date / Time bee venom protein (honey bee) Allergy Severe Hives, Verified 11/28/24 01:10 Heart racing, trouble breathing lisinopril AdvReac Intermediate Cough Verified 11/28/24 01:10 Past Med/Surg History Problem List (Updated 11/28/24 @ 06:40 by Sergo Matos PA-C) Intractable back pain (Acute) Muscle strain (Acute) Back pain (Acute) Anterolisthesis (Acute) Myalgia, multiple sites Dyslipidemia Stented coronary artery CAD (coronary artery disease) ACS (acute coronary syndrome) Esophageal stricture Chest pain (Acute) Chest pain, rule out acute myocardial infarction Esophageal reflux Hypertension Nocturnal hypoxemia Obstructive sleep apnea Medical History No pertinent family history Surgical History No pertinent past surgical history Family History Other Hypertension Social History Smoking Status: Never smoker Second Hand Exposure: No; Do You Dip or Chew Tobacco: No; Hx Alcohol Use: No Hx Substance Use: No Preferred Language: Kyrgyz Communication Ability: Effective 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 Beliefs That Will Affect Care: None marital status: Current Living Situation: Spouse and Family current occupational status: employed Other Information That Helps Us Care for You: No Feels Safe at Home: Yes Safety Concerns: Feels Safe At This Time Assistive Devices: Glasses Review of Systems A total of 10 systems reviewed and were otherwise negative Physical Exam Vital Signs Vital Signs - 24 hr 11/28/24 01:04 11/28/24 01:28 11/28/24 01:43 Temperature 37.4 C Temperature Source Oral Pulse Rate 107 H 85 Pulse Rate [Finger] 81 Respiratory Rate 24 18 Respiratory Effort / Characteristics Non-Labored Spontaneous Respiratory Depth Normal Respiratory Pattern Regular Blood Pressure 142/79 H Blood Pressure [Right Arm] 173/82 H Blood Pressure Mean 100 Blood Pressure Mean [Right Arm] 112 Blood Pressure Position [Right Arm] Sitting Pulse Oximetry 96 96 Oxygen Delivery Method Room Air Room Air Sepsis Recent Fever Within 48 Hours No Sepsis New/Unexplained Change in Mental Status No Sepsis Action Taken by Nursing No Action Required VITALS: Vitals are noted on the nurse's note and reviewed by myself. Vital signs stable. GENERAL: Well-developed, well-nourished, white male, who is in no acute distress and resting comfortably. Patient is cooperative with the examination. HEAD: Normocephalic atraumatic. NECK: Supple without nuchal rigidity. No lymphadenopathy. No thyromegaly. Cervical spine is nontender. HEART: Regular rate and rhythm without murmurs gallops or rubs. LUNGS: Clear to auscultation bilaterally without wheezes, rales or rhonchi. No retractions or accessory muscle use. BACK: Reproducible tenderness in the lower lumbar spine. Positive straight leg raise bilateral. ABDOMEN: Positive normal bowel sounds x 4. Soft, nontender, without masses or organomegaly. No guarding or rebound tenderness. MUSCULOSKELETAL: No muscle atrophy, erythema, or edema noted. Full range of motion in all extremities. NEURO: Patient was alert and oriented to person place and time. CN II through XII grossly intact. No focal neurological deficits. GCS 15. Course Administered Medications Hydromorphone HCl (Hydromorphone Inj 1 Mg/Ml Syringe) 1 mg IV Q3H PRN PRN Reason: Severe Pain (Scale 7, 8, 9,10) Stop: 12/12/24 01:59 Last Admin: 11/28/24 02:10 Dose: 1 mg Documented By: BANDAR Acetaminophen (irmev) 1,000 mg in 100 mls @ 400 mls/hr IV Q8H [facility] Stop: 12/01/24 05:59 Last Infusion: 11/28/24 06:10 Dose: Infused Documented By: Admin: 11/28/24 05:52 Dose: 400 mls/hr Documented By: MARIO Discontinued Medications Hydromorphone HCl (Hydromorphone Inj 1 Mg/Ml Syringe) 1 mg IV NOW STA Stop: 11/28/24 01:30 Last Admin: 11/28/24 01:34 Dose: 1 mg Documented By: BANDAR Hydromorphone HCl (Hydromorphone Inj 0.5 Mg/0.5 Ml Syr) 0.5 mg IV NOW STA Stop: 11/28/24 02:01 Last Admin: 11/28/24 02:16 Dose: Not Given Documented By: EMB Dexamethasone 6 mg/ Syringe 1.5 mls @ 1 mls/min IV ONE STA Stop: 11/28/24 01:55 Last Admin: 11/28/24 02:15 Dose: Not Given Documented By: EMB Dexamethasone 10 mg/ Dextrose 27.5 mls @ 60 mls/hr IV NOW STA Stop: 11/28/24 02:53 Last Infusion: 11/28/24 03:26 Dose: Infused Documented By: Admin: 11/28/24 02:44 Dose: 60 mls/hr Documented By: EMB Ketorolac Tromethamine (Ketorolac Tromethamine 15 Mg/Ml Vial) 15 mg IV NOW ONE Stop: 11/28/24 02:01 Last Admin: 11/28/24 02:07 Dose: 15 mg Documented By: BANDAR Lidocaine (Lidocaine 5% 1 Patch) 1 patch TD NOW STA Stop: 11/28/24 01:51 Last Admin: 11/28/24 02:08 Dose: 1 patch Documented By: EMB Ondansetron HCl (Ondansetron Inj 2 Mg/Ml 2 Ml Vial) 4 mg IV NOW STA Stop: 11/28/24 01:30 Last Admin: 11/28/24 01:33 Dose: 4 mg Documented By: EMB Medical Decision Making Differential Diagnosis Differential diagnosis: Etiologies such as muscular strain, fracture, metastatic disease, disc herniation, sciatica, epidural abscess, vertebral osteomyelitis, discitis, spinal epidural hematoma, cord compression, cauda equina/conus medullaris syndrome, aortic disease, infection, shingles, renal colic UTI/pyelonephritis, gastrointestinal, acute exacerbation of chronic back pain, as well as others were entertained. Laboratory Data 11/28/24 01:11 11/28/24 01:11 Lab Results 11/28/24 Range/Units 01:11 WBC 8.46 (4.8-10.8) K/ul RBC 4.56 L (4.70-6.10) M/uL Hgb 13.7 L (14.0-18.0) g/dl Hct 40.1 L (42.0-52.0) % MCV 87.9 (80.0-100.0) fL MCH 30.0 (25.0-34.0) pg MCHC 34.2 (32.0-36.0) g/dL RDW Std Deviation 39.0 (36.4-46.3) fL RDW Coeff of Kenneth 12.1 (11.5-14.5) % Plt Count 242 (130-400) K/uL MPV 9.0 L (9.4-12.4) fL Immature Gran % (Auto) 0.5 % Neut % (Auto) 81.7 % Lymph % (Auto) 13.8 % [place] % (Auto) 3.9 % Eos % (Auto) 0.0 % Baso % (Auto) 0.1 % Neut # (Auto) 6.91 H (1.40-6.50) K/uL Lymph # (Auto) 1.17 L (1.20-3.40) K/uL [place] # (Auto) 0.33 (0.11-0.59) K/uL Eos # (Auto) 0.00 (0.00-0.50) K/uL Baso # (Auto) 0.01 (0.00-0.20) K/uL Immature Gran # (Auto) 0.04 (0.01-0.20) K/uL Sodium 138 (136-145) mmol/L Potassium 3.8 (3.5-5.1) mmol/L Chloride 104 (98-107) mmol/L Carbon Dioxide 24 (21-32) mmol/L Anion Gap 10 (3-11) BUN 28 H (6-23) mg/dl Creatinine 1.22 (0.6-1.4) mg/dl Est Cr Clr Drug Dosing 91.1 ml/min eGFR 70.45 BUN/Creatinine Ratio 23.0 H (10-20) Glucose 182 H (70-99(Fasting)) mg/dl Calcium 9.5 (8.6-10.3) mg/dl Total Bilirubin 0.6 (0.2-1.0) mg/dl AST 19 (13-39) U/L ALT 26 (7-52) U/L Alkaline Phosphatase 38 (34-104) U/L Total Protein 7.8 (6.0-8.3) gm/dl Albumin 4.6 (3.4-5.0) gm/dl Globulin 3.2 (2.5-4.0) gm/dl Albumin/Globulin Ratio 1.4 (0.9-2) MDM Narrative Physical exam and history were performed. Nursing notes, EMR, and Medication List were personally reviewed. No social concerns were identified as barriers to patients care. History was provided by the Patient and who is at bedside. Patient appears to have back pain bring him to the ER. Patient attempted to go home after evaluation several hours ago, however he is not able to tolerate the pain at home with oral analgesics. IV access was established and basic labs were obtained. Patient was given IV Dilaudid and IV Zofran here in the ER. Patient's blood work is as above and does not show significant evidence of infection or electrolyte imbalance. Escalation of care was considered, and felt to be necessary as the patient is unable to stand or walk secondary to his pain without IV analgesics. Case was discussed with the on-call hospitalist team who agreed to evaluate the patient here in the ER. Please see their dictation for further patient course, plan, disposition. The chart was completed utilizing [employer] Speech Voice Recognition Software. Grammatical errors, random word insertions, pronoun errors, and incomplete sentences are an occasional consequence of this system due to software limitations, ambient noise, and hardware issues. Any formal questions or concerns about the content, text, or information contained within the body of this dictation should be directly addressed to the provider for clarification. Impression & Plan Intractable back pain Discharge Plan Visit Data Chief Complaint: Back Injury/Pain Stated Complaint: BACK PAIN ED Provider: Adolfo Herbert ED Midlevel Provider: Sergo Matos Discharge Problem: Intractable back pain Patient Disposition: Admitted As Inpatient Condition: Fair Discharge Instructions Interventions: ED Discharge Assessment Last Done: 11/28/24 04:20
[2024-11-28] MEDS: HYDROmorphone INJ 1 MG/ML SYRINGE IV STA (01:34)
[2024-11-28 01:50] LABS: Alanine Aminotransferase 26.0 U/L (7-52); Albumin Globulin Ratio 1.4 (0.9-2); Alkaline Phosphatase 38.0 U/L (34-104); Anion Gap 10.0 (3-11); Bilirubin,Total 0.6 mg/dl (0.2-1.0); Blood Urea Nitrogen 28.0 mg/dl (6-23); Calcium 9.5 mg/dl (8.6-10.3); Carbon Dioxide 24.0 mmol/L (21-32); Chloride 104.0 mmol/L (98-107); Creatinine Clr Calc Pharmacy 91.1 ml/min; Globulin 3.2 gm/dl (2.5-4.0); Glucose 182.0 mg/dl (70-99(Fasting)); Potassium 3.8 mmol/L (3.5-5.1); Sodium 138.0 mmol/L (136-145); Total Protein 7.8 gm/dl (6.0-8.3)
[2024-11-28] MEDS ORDERED: HYDROmorphone INJ 0.5 MG/0.5 ML SYR IV PRN (02:00)
--- NOTE | 2024-11-28 02:01 | History & Physical Report ---
Date of Service November 28, 2024 Assessment & Plan (1) Intractable back pain: (2) Anterolisthesis: (3) CAD (coronary artery disease): (4) Obstructive sleep apnea: Plan Patient is a 54-year-old male with a past medical history of CAD s/p stent to diagonal, TONIA on CPAP, HTN, esophageal strictures. He presented to the ED 11/27 due to intractable back pain and was found to have diffuse disc bulge at the L5/S1 region with moderate bilateral neural foraminal stenosis which may be coming into contact with exiting nerve roots on lumbar spine MRI. He was offered admission for IV pain control however denied and returned home on Flexeril, prednisone taper, and oxycodone 5 Mg as needed. He returned to the ED later this evening due to persistent uncontrollable 10/10 back pain and is being admitted for intractable pain and to have orthospine eval. #intractable back pain/anterolisthesis L5-S1 - Lumbar spine MRI showed grade 1 anterolisthesis of L5 on S1 with diffuse disc bulge. Moderate bilateral neural foraminal stenosis which may be coming into contact with exiting nerve roots. patient neurovascularly intact, denies incontinence. - dexamethasone 10 Mg IV at time of admission, continue with dexamethasone 6 Mg daily Pain control with scheduled IV Tylenol, Toradol 10 Mg IV prn, Dilaudid 0.5/1 Mg for breakthrough pain - narcan prn Lidoderm patch ordered Continue Flexeril 10mg PO QID as needed K-pad as needed Orthospine consulted #CAD/HLDfollows with Dr. Alvarez, s/p PCI with JEFFREY to diagonal. Continue Plavix and statin #OSAcontinue CPAP at bedtime #HTNmildly elevated at time of admission, suspect secondary to pain. Continue HCTZ and olmesartan #Esophageal stricturescontinue PPI VTE ppx: SCDs, defer chemical with potential surgical management Dispo: med/tele Admission and Anticipated Discharge Date Admission Date: 11/28/24 History of Present Illness Chief Complaint: back pain Primary Care Provider: Ramos Conroy DO Patient is a 54-year-old male with a past medical history of CAD s/p stent to diagonal, TONIA on CPAP, HTN, esophageal strictures. He presented to the ED 11/27 due to intractable back pain and was found to have diffuse disc bulge at the L5/S1 region with moderate bilateral neural foraminal stenosis which may be coming into contact with exiting nerve roots on lumbar spine MRI. He was offered admission for IV pain control however denied and returned home on Flexeril, prednisone taper, and oxycodone 5 Mg as needed. He returned to the ED later this evening due to persistent uncontrollable 10/10 back pain and is being admitted for intractable pain and to have orthospine eval. Patient seen at bedside with his present. He stated his pain started when he was in [place] at a conference last week began around . He was ambulating often, more than his baseline while he was here. It started as hip pain and then progressed to back pain and he went to the ER there for workup because he thought he may have had a kidney stone with difficulty urinating. Pain was controlled in the ER he returned home. Pain persisted so he came into the ED earlier was given Zofran 4 Mg IV, morphine 4 Mg IV, Toradol 15 Mg IV, 1G IV Tylenol, 50 mcg fentanyl x 3. His pain was well-controlled at this time and he returned home after declining admission. He was prescribed Flexeril, prednisone taper, and oxycodone. He did not yet start the prednisone taper but believes he had 2 doses of steroids in the ED. This evening he took his oxycodone and reportedly 2 Tylenol. He had 10 out of 10 pain at home that was persistent and return to the ED. He denies any dizziness, lightheadedness, chest pain, shortness of breath, numbness, tingling, bowel or bladder incontinence. The pain is radiating to his bilateral legs. He denies any nicotine use. He stated he drinks a couple of beers to a sixpack per day but has not drink since last Thursday or . He still uses CPAP at night for sleep apnea. He wishes to be full code. Allergies Allergy/AdvReac Type Severity Reaction Status Date / Time bee venom protein (honey bee) Allergy Severe Hives, Verified 11/28/24 01:10 Heart racing, trouble breathing lisinopril AdvReac Intermediate Cough Verified 11/28/24 01:10 Home Medications Medication Instructions Recorded Confirmed Type pantoprazole 40 mg tablet,delayed 40 mg PO DAILY 12/31/21 11/28/24 History release atorvastatin 80 mg tablet 80 mg PO QPM #90 tabs 09/18/23 11/28/24 Rx olmesartan 40 mg tablet 40 mg PO DAILY #90 tabs 09/28/24 11/28/24 Rx clopidogrel 75 mg tablet 75 mg PO QAM #21 tabs 10/04/24 11/28/24 Rx hydrochlorothiazide 25 mg tablet 25 mg PO DAILY #90 tabs 10/10/24 11/28/24 Rx cyclobenzaprine 10 mg tablet 10 mg PO QID PRN MUSCLE SPASMS 11/27/24 11/28/24 History cyclobenzaprine 10 mg tablet 10 mg PO TID PRN muscle spasm #15 11/27/24 11/28/24 Rx tabs epinephrine 0.3 mg/0.3 mL 0.3 mg IM DIRECTED PRN Allergic 11/27/24 11/28/24 History injection, auto-injector Reaction multivitamin 1 tab PO DAILY 11/27/24 11/28/24 History oxycodone 5 mg tablet 5 mg PO Q6H PRN pain #15 tabs 11/27/24 11/28/24 Rx prednisone 10 mg tablet 10 mg PO DIRECTED #20 tabs 11/27/24 11/28/24 Rx Past Med/Surg History Problem List (Updated 11/28/24 @ 02:29 by Huong Watts PA-C) Intractable back pain Muscle strain (Acute) Back pain (Acute) Anterolisthesis (Acute) Myalgia, multiple sites Dyslipidemia Stented coronary artery CAD (coronary artery disease) ACS (acute coronary syndrome) Esophageal stricture Chest pain (Acute) Chest pain, rule out acute myocardial infarction Esophageal reflux Hypertension Nocturnal hypoxemia Obstructive sleep apnea Medical History No pertinent family history Surgical History No pertinent past surgical history Family History Other Hypertension Social History Smoking Status: Former smoker Second Hand Exposure: No; Do You Dip or Chew Tobacco: No; Hx Alcohol Use: Yes Alcohol type: beer Hx Substance Use: No Communication Ability: Effective Hand Grinder Required: No Beliefs That Will Affect Care: None marital status: Current Living Situation: Family current occupational status: employed Feels Safe at Home: Yes Assistive Devices: CPAP Review of Systems Review of Systems: see HPI Physical Exam Physical Exam: The patient is awake, alert and oriented 3, well developed and well nourished, normocephalic and atraumatic, visibly uncomfortable in pain. HEENT- EOMI, mucous membranes moist. Hearing grossly intact. Heart-normal S1 and S2. No murmurs, rubs or gallops. Lungs-clear bilaterally, no respiratory distress, no accessory muscle use. Abdomen-normal bowel sounds and soft. No ascites noted. Non-tender. Extremities- no clubbing, cyanosis, or edema. Rheumatologic-normal range of motion. Psychiatric-normal affect. Results & Data Results & Data Vital Signs (Past 12 Hours) Vital Signs Temp Pulse Pulse Resp BP BP Pulse Ox 11/28/24 01:43 85 11/28/24 01:28 81 18 173/82 H 96 11/28/24 01:04 37.4 C 107 H 24 142/79 H 96 O2 Del Method 11/28/24 01:43 11/28/24 01:28 Room Air 11/28/24 01:04 Room Air Laboratory Results reviewed CBC and CMP Diagnostic Findings reviewed lumbar spine MRI Medications Administered ED- Dilaudid 1 Mg IV, Zofran 4 Mg IV Admissiondexamethasone 10 Mg IV, Lidoderm patch, Toradol 15 Mg IV ECG Additional Comments: ordered Code Status & VTE Plan Code Status full code VTE Prophylaxis Plan VTE Prophylaxis will be ordered: Yes Supervising Physician Co-Signing Physician Notes Attending addendum: I have physically seen this patient, have supervised the GABBIE's activities, and agree with the H&P unless as otherwise noted. Assessment and Plan: The patient is a 54-year-old male with past medical history including CAD status post stent to diagonal, TONIA on CPAP, hypertension, esophageal strictures, hyperlipidemia, muscle spasm, GERD. He presented to the emergency department earlier in the day on 11/27 due to intractable back pain that happened when he was at a meeting where he was sitting for long intervals of time and walked a lot more than usual. He did have an MRI performed of the lumbar spine which showed a diffuse disc bulge at L5-S1, with moderate bilateral neuroforaminal stenosis which may be coming into contact with exiting nerve roots on the lumbar spine MRI. In the afternoon, patient had been offered admission, however, he provide preferred to try to go home with oral medications. He has come back into the ED due to severe pain, and to be seen by orthopedic spine surgery in the a.m. Intractable back pain/anterolisthesis of L5 and S1- Moderate bilateral neuroforaminal stenosis which may be coming into contact with exiting nerve roots. Give dexamethasone 10 mg IV now, and then 6 mg IV daily Acetaminophen 1 g IV every 8 hours as needed for mild pain or fever Toradol 10 mg IV every 6 hours as needed moderate pain Dilaudid 0.5/1 mg as needed breakthrough pain as noted Lidoderm patch Flexeril 10 mg p.o. 4 times daily as needed K-pad as needed Consult Ortho spine surgery CAD/hypertension- Continue Plavix, olmesartan and HCTZ TONIA- Continue CPAP at bedtime Hyperlipidemia- Continue atorvastatin PG Care Time/CCT Total # of Minutes Spent Total Time Spent with Patient: Total time spent is greater than 50% in coordination of care (as documented) at patient's floor/unit and/or counseling patient: Coding Level of Care Code 33641 INT INP/OBS CARE 3/75MIN Diagnoses Intractable back pain M54.9 Anterolisthesis M43.10 Coronary artery disease involving [place] coronary artery of [place] heart without angina pectoris I25.10 Associated angina: without angina Coronary Disease-Associated Artery/Lesion type: [place] artery [place] vs. transplanted heart: [place] heart Obstructive sleep apnea G47.33 (3) CAD (coronary artery disease) Associated angina: without angina Coronary Disease-Associated Artery/Lesion type: [place] artery [place] vs. transplanted heart: [place] heart Qualified Code(s): I25.10 - Atherosclerotic heart disease of [place] coronary artery without angina pectoris
[2024-11-28] MEDS: KETOROLAC TROMETHAMINE 15 MG/ML VIAL IV ONE (02:07)
[2024-11-28] MEDS: LIDOCAINE 5% 1 PATCH TD STA (02:08)
[2024-11-28] MEDS: HYDROmorphone INJ 1 MG/ML SYRINGE IV PRN (02:10)
[2024-11-28] MEDS: dexAMETHasone 6 MG in SYRINGE 0 ML IV STA (02:15)
[2024-11-28] MEDS: HYDROmorphone INJ 0.5 MG/0.5 ML SYR IV STA (02:16)
[2024-11-28] MEDS: dexAMETHasone 10 MG in DEXTROSE 5% 25 ML IV STA (02:44)
[2024-11-28] MEDS ORDERED: DOCUSATE SODIUM 100 MG CAP PO PRN (04:16)
[2024-11-28] MEDS ORDERED: KETOROLAC TROMETHAMINE 15 MG/ML VIAL IV PRN (04:16)
[2024-11-28] MEDS ORDERED: CYCLOBENZAPRINE HCL 10 MG TAB PO PRN (04:16)
[2024-11-28] MEDS ORDERED: NALOXONE HCL 0.4 MG/1 ML VIAL/CARP IV PRN (04:16)
[2024-11-28] MEDS ORDERED: ONDANSETRON INJ 2 MG/ML 2 ML VIAL IV PRN (04:16)
[2024-11-28] MEDS ORDERED: MELATONIN 3 MG TAB PO PRN (04:16)
[2024-11-28] MEDS: ACETAMINOPHEN 1,000 MG/100 ML VIAL IV SCH (05:52)
[2024-11-28] MEDS: KETOROLAC 30 MG/ML VIAL IV SCH (07:47)
[2024-11-28] MEDS: hydroCHLOROthiazide 25 MG TAB PO SCH (08:20)
[2024-11-28] MEDS: LOSARTAN POTASSIUM 50 MG TAB PO SCH (08:20)
[2024-11-28] MEDS: CLOPIDOGREL BISULFATE 75 MG TAB PO SCH (08:20)
[2024-11-28] MEDS ORDERED: dexAMETHasone 6 MG in SYRINGE 0 ML IV SCH (09:00)
[2024-11-28] MEDS: REMOVE LIDODERM PATCH ONE (13:37)
[2024-11-28 15:00] VITALS: RESP 18; TEMP 97.7; O2SAT 95
--- NOTE | 2024-11-28 16:23 | Orthopedic Consultation ---
Date of Service November 28, 2024 History of Present Illness Reason for Consultation: Low back pain Requesting Physician: . Attending Physician: Alon Corral DO 54-year-old male presenting to the emergency department for evaluation of continued back pain in November 27. Patient was seen and evaluated in this department roughly 12 hours ago for his symptoms. The patient evidently was in [place] for a conference and had increased ambulation at that time. He developed some mild low back pain that he initially thought may have been a kidney stone. He was evaluated at an ER there, where CT scan did not show any kidney stone, but was concerning for low back/lumbar etiology of his symptoms. Patient ultimately returned home and came to this facility where MRI shows advanced findings in L5/S1. Patient felt better after pain medication here in the ER and was given the option of discharge home versus admission to the hospital. Patient elected to go home, but only made it a few hours before pain returned. He tried taking [id number] analgesics and Oxy IR, without any significant relief. He rates his discomfort a 10/10. Pain worsens with certain movement. Upon evaluation this afternoon patient notes he has had a distinct improvement of the low back pain across his lumbosacral spine which was his main complaint. Initially he reports having some symptoms radiating in both legs roughly symmetric down to lower part of the lateral calfs, but this has improved significantly with the medication. He has been out of bed and to the bathroom this afternoon with physical therapy. Exam reveals him to have intact strength in the lower extremities, 5/5 strength or EHL plantar dorsiflexion of the ankles, and other motor groups, he has bilateral negative straight leg raise. Pain is indicated at the lumbosacral junction. MRI OF THE LUMBAR SPINE WITHOUT IV CONTRAST November 27, 2024 FINDINGS: Large body habitus is noted. Lumbar spine: Lordotic straightening present. Grade 1 anterolisthesis of L5 on S1 present. Moderate endplate changes present at this level. Intraosseous hemangioma present in the L4 vertebral body. Intervertebral discs: Diminished Spinal cord and central canal: Conus terminates at T12-L1. L1-L2?L2-L3: No focal disc protrusion, neuroforaminal stenosis or nerve root impingement. L3-L4: Mild ligamentum flavum hypertrophy present with no focal disc extrusion or nerve root impingement. L4-L5: Mild diffuse disc bulges noted with no significant neuroforaminal stenosis or nerve root impingement. L5-S1: Advanced facet hypertrophic changes present. No definite pars interarticularis defects noted, allowing for MR technique. 6 mm of L5 anterolisthesis on S1 is present with uncovering of the posterior disc and broad-based diffuse disc bulge. No focal disc extrusion or nerve root impingement. Moderate bilateral neuroforaminal stenosis noted which may come into contact with the exiting nerve roots, right greater than left. No free disc fragment. Moderate ligamentum flavum hypertrophy present with no central spinal stenosis. Sacrum: Sacroiliac joints patent. Soft tissues: No free fluid in the pelvis. No retroperitoneal adenopathy or hematoma. Muscle bulk is normal. IMPRESSION: 1. Grade 1 anterolisthesis of L5 on S1 with a diffuse disc bulge, ligamentum flavum hypertrophy and moderate bilateral neural foraminal stenosis which may coming to contact with the exiting nerve roots. No focal disc extrusion, free disc fragment or spinal stenosis. Given the stated clinical symptoms, neurosurgical consultation could be considered, if appropriate. 2. Overall straightening of the lumbar spine favoring muscle spasm. 3. Mild degenerative disc disease at L4-L5. MRI images lumbar spine from [facility] on November 27, 2024 were reviewed, this is my separate interpretation, this reveals the main findings to be at L5-S1 where there is spondylolysis bilaterally at L5 along with notable loss of disc space height and degeneration at L5-S1, there is severe foraminal stenosis bilaterally but no significant central stenosis, there is some developing degenerative changes at L4-5. Impression: 2-day history of increased low back pain without any specific inciting incident but findings as noted at L5-S1 with spondylolysis and grade 1 spondylolisthesis, severe foraminal stenosis. Plan: Today in talking with the patient, as stated he is notably improved as of this time when compared to earlier in the day or Thursday. He has been out of bed, at this point I explained to the patient the findings at the L5-S1 level. My recommendations are for the patient to mobilize tonight and tomorrow, he can be discharged if functioning on appropriate pain medications but I have recommended follow-up with my office in the next 2 to 3 weeks to review the MRI images and have additional discussion as he may be a candidate for any number of conservative measures, he was in agreement with this plan. Allergies Allergy/AdvReac Type Severity Reaction Status Date / Time bee venom protein (honey bee) Allergy Severe Hives, Verified 11/28/24 01:10 Heart racing, trouble breathing lisinopril AdvReac Intermediate Cough Verified 11/28/24 01:10 Home Medications Medication Instructions Recorded Confirmed Type pantoprazole 40 mg tablet,delayed 40 mg PO DAILY 12/31/21 11/28/24 History release atorvastatin 80 mg tablet 80 mg PO QPM #90 tabs 09/18/23 11/28/24 Rx olmesartan 40 mg tablet 40 mg PO DAILY #90 tabs 09/28/24 11/28/24 Rx clopidogrel 75 mg tablet 75 mg PO QAM #21 tabs 10/04/24 11/28/24 Rx hydrochlorothiazide 25 mg tablet 25 mg PO DAILY #90 tabs 10/10/24 11/28/24 Rx cyclobenzaprine 10 mg tablet 10 mg PO QID PRN MUSCLE SPASMS 11/27/24 11/28/24 History cyclobenzaprine 10 mg tablet 10 mg PO TID PRN muscle spasm #15 11/27/24 11/28/24 Rx tabs epinephrine 0.3 mg/0.3 mL 0.3 mg IM DIRECTED PRN Allergic 11/27/24 11/28/24 History injection, auto-injector Reaction multivitamin 1 tab PO DAILY 11/27/24 11/28/24 History oxycodone 5 mg tablet 5 mg PO Q6H PRN pain #15 tabs 11/27/24 11/28/24 Rx prednisone 10 mg tablet 10 mg PO DIRECTED #20 tabs 11/27/24 11/28/24 Rx acetaminophen 500 mg capsule 1,000 mg (2 x 500 mg) PO Q8H 14 11/28/24 Rx days #84 caps ketorolac 10 mg tablet 10 mg PO Q6H 4 days #16 tabs 11/28/24 Rx Past Med/Surg History Problem List Intractable back pain (Acute) Muscle strain (Acute) Back pain (Acute) Anterolisthesis (Acute) Myalgia, multiple sites Dyslipidemia Stented coronary artery CAD (coronary artery disease) ACS (acute coronary syndrome) Esophageal stricture Chest pain (Acute) Chest pain, rule out acute myocardial infarction Esophageal reflux Hypertension Nocturnal hypoxemia Obstructive sleep apnea Medical History No pertinent family history Surgical History No pertinent past surgical history Family History Other Hypertension Social History Smoking Status: Never smoker Second Hand Exposure: No; Do You Dip or Chew Tobacco: No; Hx Alcohol Use: No Hx Substance Use: No Preferred Language: Slovenian Communication Ability: Effective Cow Tender Required: No Beliefs That Will Affect Care: None marital status: Current Living Situation: Spouse and Family current occupational status: employed Other Information That Helps Us Care for You: No Feels Safe at Home: Yes Safety Concerns: Feels Safe At This Time Assistive Devices: Glasses Review of Systems All systems reviewed & are unremarkable except as noted in HPI & below. Physical Exam . Results & Data Results & Data Laboratory Results . Diagnostic Findings . PG Care Time/CCT Total # of Minutes Spent Total Time Spent with Patient: Total time spent is greater than 50% in coordination of care (as documented) at patient's floor/unit and/or counseling patient: Coding Level of Care Code 09524 IN/OBS CONSULT LVL 3,45M
--- NOTE | 2024-11-28 16:43 | Discharge Summary ---
Discharge Summary Date of Service November 28, 2024 Principal Dx & Hospital Course #1 = Principal Diagnosis (1) Anterolisthesis of lumbosacral spine: (2) Paracentral disc prolapse: Plan In summary this is a 54-year-old male who presented to the [facility] due to persistent low back pain after a long period of ambulation and return flight in/from [place] on 11/25. They were admitted for intractable low back pain and found to have structural changes as detailed further below. #Grade 2 L5-S1 anterolisthesis with paracentral disc hernation without radiculopathy Patient was found to have a L5-S1 grade 2 anterolisthesis with a L5 disc paracentral herniation without cord compression or significant nerve root compression. The patient has no radicular symptoms, is able to ambulate without significant discomfort. He will be discharged for follow-up in the outpatient setting with continued prescribed Toradol and acetaminophen. Follow-up with neurosurgery as recommended in consultation Admission HPI Per Admitting Provider Patient is a 54-year-old male with a past medical history of CAD s/p stent to diagonal, TONIA on CPAP, HTN, esophageal strictures. He presented to the ED 11/27 due to intractable back pain and was found to have diffuse disc bulge at the L5/S1 region with moderate bilateral neural foraminal stenosis which may be coming into contact with exiting nerve roots on lumbar spine MRI. He was offered admission for IV pain control however denied and returned home on Flexeril, prednisone taper, and oxycodone 5 Mg as needed. He returned to the ED later this evening due to persistent uncontrollable 10/10 back pain and is being admitted for intractable pain and to have orthospine eval. Patient seen at bedside with his present. He stated his pain started when he was in [place] at a conference last week began around . He was ambulating often, more than his baseline while he was here. It started as hip pain and then progressed to back pain and he went to the ER there for workup because he thought he may have had a kidney stone with difficulty urinating. Pain was controlled in the ER he returned home. Pain persisted so he came into the ED earlier was given Zofran 4 Mg IV, morphine 4 Mg IV, Toradol 15 Mg IV, 1G IV Tylenol, 50 mcg fentanyl x 3. His pain was well-controlled at this time and he returned home after declining admission. He was prescribed Flexeril, prednisone taper, and oxycodone. He did not yet start the prednisone taper but believes he had 2 doses of steroids in the ED. This evening he took his oxycodone and reportedly 2 Tylenol. He had 10 out of 10 pain at home that was persistent and return to the ED. He denies any dizziness, lightheadedness, chest pain, shortness of breath, numbness, tingling, bowel or bladder incontinence. The pain is radiating to his bilateral legs. He denies any nicotine use. He stated he drinks a couple of beers to a sixpack per day but has not drink since last Thursday or . He still uses CPAP at night for sleep apnea. He wishes to be full code. Discharge Exam General: Adult in no acute distress Vital Signs: Reviewed Pulmonary: symmetric chest wall excursion; CTAB Cardiovascular: Regular rate and rhythm with no murmurs, rubs, or gallops; S1 and S2 normal; bilateral radial and posterior tibial pulses 2+ Gastrointestinal: Soft, nondistended Musculoskeletal: symmetric 5/5 strength in the bilateral lower extremities without sensation deficit; straight leg test negative bilaterally Neurologic: CN II-XII grossly intact; no discernible focal weakness nor paresthesias Discharge Plan Discharge Items Patient Disposition: Home - Self-Care Reason For Visit: INTRACTIBLE BACK PAIN Discharge Diagnosis: L5-S1 anterolisthesis with paracentral disc bulge Condition on Discharge: Good Activity: Per Instructions section Lifting: Wait until after follow-up appointment Bathing: No limitations Exercise/Sports: Wait until after follow-up appointment Weightbearing: Full weightbearing Non-emergency contact: Primary Care Provider Call non-emergency contact if: you have any medication questions and your symptoms worsen Follow-up/Referrals: Ramos Conroy DO [Primary Care Provider] - Diet: Heart Healthy Fluids: 1800ml (7 cups) Addtl Attending Provider Instructions: Please maintain close follow up after hospitalization with your PCP. Pending Studies at Discharge: No Stand-Alone Forms: My Buddy Drinks, Smoking Cessation Medications and DC Order Prescriptions: New ketorolac 10 mg tablet 10 mg PO Q6H 4 Days Qty: 16 0RF acetaminophen 500 mg capsule 1,000 mg PO Q8H 14 Days Qty: 84 0RF Continued atorvastatin 80 mg tablet 80 mg PO QPM Qty: 90 3RF olmesartan 40 mg tablet 40 mg PO DAILY Qty: 90 3RF clopidogrel 75 mg tablet 75 mg PO QAM Qty: 21 1RF hydrochlorothiazide 25 mg tablet 25 mg PO DAILY Qty: 90 3RF pantoprazole 40 mg tablet,delayed release (DR/EC) 40 mg PO DAILY multivitamin Tablet 1 tab PO DAILY cyclobenzaprine 10 mg tablet 10 mg PO QID PRN (Reason: MUSCLE SPASMS) epinephrine 0.3 mg/0.3 mL auto-injector 0.3 mg IM DIRECTED PRN (Reason: Allergic Reaction) oxycodone 5 mg tablet 5 mg PO Q6H PRN (Reason: pain) Qty: 15 0RF prednisone 10 mg tablet 10 mg PO DIRECTED Qty: 20 0RF Rx Instructions: Day 1-2 40mg, Day 3-4 30mg, Day 5-6 20mg, Day 7-8 10mg Held cyclobenzaprine 10 mg tablet 10 mg PO TID PRN (Reason: muscle spasm) Qty: 15 0RF Hold Instructions: Resume on 12/12/24. Discuss continued use with your PCP Discharge Orders: Discharge Order (Routine); Ordered 11/28/24 Ordered By: Alon Nichole/Other Patient Handouts: Back Safety: Bending, Back Safety: Lifting, Back Safety: Pushing and Pulling, Back Basics: A Healthy Spine, Back Care Every Day Admission Data Admit Date/Time: 11/28/24 02:12 Attending Provider: Alon Corral Admit Provider: Sammy Hook Primary Care Provider: Ramos Conroy Other Providers: Sammy Hook; Joshua Lopez; Umesh Payton; Sahra Lopez; Radha Connor; Hamlet De Souza.; Hugo Arias; Delon Duarte; Hamlet Lopez Hospital Stay Data Consultations 11/28/24 01:57 ED Decision to Admit Stat 11/28/24 04:16 Consult Orthopedic Spine Surgery Routine Pending Results Patient Have Any Pending Studies at Discharge: No Discharge Instructions Given to Patient (Per Discharging Provider) Please maintain close follow up after hospitalization with your PCP. Total Time Total Time Spent Total Time Spent (In Minutes): 45 Coding Level of Care Code INP/OBS EV SAME DAY LV 1,45MIN Diagnoses Anterolisthesis of lumbosacral spine M43.17 Paracentral disc prolapse M51.9
[2024-11-28 17:00] VITALS: BP 140/76; PULSE 67
[2024-11-28] MEDS ORDERED: ATORVASTATIN 40 MG TAB PO SCH (21:00)
[2024-11-29] MEDS ORDERED: LIDOCAINE 5% 1 PATCH TD SCH (09:00)
[2024-11-29] MEDS ORDERED: REMOVE LIDODERM PATCH SCH (21:00)
== END 2024-11-28 17:35 | disposition home or self-care (01) | DRG 552 ==
LOC: SUATTDRO → ED 01:02 → 2N 02:12 → SUATTDRO 02:12 → 2N 04:20